=== PATIENT | female | born 1950 | race African-American/Black ===

== ENCOUNTER → 2018-11-10 | Emergency (ER) | payer SELFPAY ==
[~2018-11-10] VITALS: Ht 167.6 cm; Wt 74.8 kg
[~2018-11-10] MED LIST: Isovue-300 100ml vial INJ PRN; NORCO 5-325 TA1 EACH ORAL; OMEPRAZOLE20 M3 ORAL
--- NOTE | 2018-11-10 12:58 | NUR ---
ED Nurse Note: Patient brought in by ambulance from home c/o epigastric abdominal pain 1 hour prior to arrival. patient's last bm was 7am. patient reports she did not take her blood pressure medication this morning. patient is alert awake x4 ambulatory, breathing unlabored and even.
--- NOTE | 2018-11-10 13:13 | Emergency Room Report ---
History of Present Illness General Chief Complaint: Abdominal Pain Source: Patient Present Illness HPI Patient is a 68-year-old female presented after increased abdominal discomfort. Patient reports having increased epigastric pain. She states this had worsened after eating a burrito. Patient had been noted to have increased blood pressure and normally takes amlodipine but did not take her medications today. She also had been drinking alcohol earlier in the day. This seemed to worsen the pain. She denies any fever. She denies any rectal bleeding. She reports having increased epigastric pain was brought in by EMS.Denies any fever. Allergies: Coded Allergies: No Known Allergies (Unverified , 11/10/18) Patient History Past Medical History: see triage record Past Surgical History: none Now: No Reviewed Nursing Documentation: PMH: Agreed; PSxH: Agreed Nursing Documentation-PMH Past Medical History: No History, Except For Hx Hypertension: Yes Review of Systems All Other Systems: negative except mentioned in HPI Physical Exam Vital Signs Date Time Temp Pulse Resp B/P (MAP) Pulse Ox O2 Delivery O2 Flow Rate FiO2 11/10/18 12:53 97.5 98 18 192/112 (138) 94 Room Air Sp02 EP Interpretation: reviewed, normal General Appearance: normal inspection, well appearing, no apparent distress, alert, GCS 15 Head: atraumatic ENT: normal ENT inspection, hearing grossly normal, normal voice Neck: normal inspection, full range of motion, supple, no bony tend Respiratory: normal inspection, lungs clear, normal breath sounds, no respiratory distress, no retraction, no wheezing Cardiovascular #1: regular rate, rhythm, no edema Gastrointestinal: normal inspection, normal bowel sounds, non tender, soft, no guarding, no hernia Genitourinary: no CVA tenderness Musculoskeletal: normal inspection, back normal, normal range of motion Neurologic: normal inspection, alert, oriented x3, responsive, synchronous motor assembler III-XII nml as tested, motor strength/tone normal, speech normal Psychiatric: normal inspection, judgement/insight normal, mood/affect normal Medical Decision Making Diagnostic Impression: Primary Impression: Abdominal pain Additional Impression: Common bile duct dilation ER Course Patient presented for epigastric pain. Differential Diagnosis: A differential diagnosis for the abdominal pain includes , but is not limited to: gastritis, gastroenteritis, enteritis, colitis, irritable bowel disease, inflammatory bowel disease, appendicitis, viral infection, diverticulitis, ileus, bowel obstruction, volvulus, ileus, hernia, intussusception, gas pains, indigestion, gastroesophageal reflux, aortic pathology, urinary tract infection, pyelonephritis. Patient was noted to have some claustrophobia and refused CT imaging despite offer of anxiolytic or sedation. Abdominal us read by radiology showed: Impression: Possible bilateral nonobstructive intrarenal calculi Negative for gallstones. However, there is dilatation of the common bile duct, which measures 9 mm in diameter. Possibly age-related but the possibility of downstream obstruction should be considered. Recommend correlation with liver function tests, consideration for MRCP if clinically indicated Patient was noted to have abnormally dilated CBD on ultrasound. Patient was noted to have some epigastric pain initally and this improved after medications. Patient was advised that this dilated CBD required further imaging. Patient continued to refuse imaging studies. Labs Test 11/10/18 13:15 White Blood Count 8.2 K/UL (4.8-10.8) Red Blood Count 5.05 M/UL (4.20-5.40) Hemoglobin 14.5 G/DL (12.0-16.0) Hematocrit 46.4 % (37.0-47.0) Mean Corpuscular Volume 92 FL (80-99) Mean Corpuscular Hemoglobin 28.7 PG (27.0-31.0) Mean Corpuscular Hemoglobin Concent 31.2 G/DL (32.0-36.0) Red Cell Distribution Width 12.9 % (11.6-14.8) Platelet Count 242 K/UL (150-450) Mean Platelet Volume 9.4 FL (6.5-10.1) Neutrophils (%) (Auto) 58.5 % (45.0-75.0) Lymphocytes (%) (Auto) 28.7 % (20.0-45.0) Monocytes (%) (Auto) 7.4 % (1.0-10.0) Eosinophils (%) (Auto) 3.9 % (0.0-3.0) Basophils (%) (Auto) 1.6 % (0.0-2.0) Urine Color Pale yellow Urine Appearance Clear Urine pH 7 (4.5-8.0) Urine Specific [place] 1.005 (1.005-1.035) Urine Protein 2+ (NEGATIVE) Urine Glucose (UA) Negative (NEGATIVE) Urine Ketones Negative (NEGATIVE) Urine Blood Negative (NEGATIVE) Urine Nitrite Negative (NEGATIVE) Urine Bilirubin Negative (NEGATIVE) Urine Urobilinogen Normal MG/DL (0.0-1.0) Urine Leukocyte Esterase Negative (NEGATIVE) Urine RBC 0 /HPF (0 - 2) Urine WBC 0 /HPF (0 - 2) Urine Squamous Epithelial Cells Occasional /LPF Urine Bacteria Occasional /HPF (NONE) Sodium Level 141 MMOL/L (136-145) Potassium Level 3.5 MMOL/L (3.5-5.1) Chloride Level 104 MMOL/L (98-107) Carbon Dioxide Level 29 MMOL/L (21-32) Anion Gap 8 mmol/L (5-15) Blood Urea Nitrogen 13 mg/dL (7-18) Creatinine 1.0 MG/DL (0.55-1.30) Estimat Glomerular Filtration Rate > 60 mL/min (>60) Glucose Level 94 MG/DL (74-106) Calcium Level 9.2 MG/DL (8.5-10.1) Total Bilirubin 0.7 MG/DL (0.2-1.0) Aspartate Amino Transf (AST/SGOT) 129 U/L (15-37) Alanine Aminotransferase (ALT/SGPT) 50 U/L (12-78) Alkaline Phosphatase 133 U/L (46-116) Total Protein 8.5 G/DL (6.4-8.2) Albumin 4.3 G/DL (3.4-5.0) Globulin 4.2 g/dL Albumin/Globulin Ratio 1.0 (1.0-2.7) Lipase 108 U/L (73-393) EKG Diagnostic Results Rate: normal Rhythm: NSR ST Segments: no acute changes Last Vital Signs Date Time Temp Pulse Resp B/P (MAP) Pulse Ox O2 Delivery O2 Flow Rate FiO2 11/10/18 12:53 97.5 98 18 192/112 (138) 94 Room Air Status: improved Disposition: AGAINST MEDICAL ADVICE Condition: Serious Scripts Hydrocodone Bit/Acetaminophen 5-325* (NORCO 5-325*) 1 Each Tablet 1 TAB ORAL Q4H PRN for For Pain, #12 TAB 0 Refills Prov: Gurpreet Lees MD 11/10/18 Omeprazole (OMEPRAZOLE) 20 Mg Tablet.dr 20 MG ORAL DAILY, #30 TAB Prov: Gurpreet Lees MD 11/10/18 Gurpreet Lees MD Nov 10, 2018 13:13
--- NOTE | 2018-11-10 13:20 | NUR ---
ED Nurse Note: blood/ua sent to lab.
[2018-11-10 13:23] VITALS: BP 157/90
[2018-11-10 13:27] LABS: APPEARANCE,URINE CLEAR; BILIRUBIN, URINE NEGATIVE (NEGATIVE); COLOR,URINE PALE YELLOW; GLUCOSE, URINE (UA) NEGATIVE (NEGATIVE); KETONES,URINE NEGATIVE (NEGATIVE); LEUKOCYTE ESTERASE ,URINE NEGATIVE (NEGATIVE); NITRITE,URINE NEGATIVE (NEGATIVE); PH,URINE 7 (4.5-8.0); PROTEIN,URINE 2+ (NEGATIVE); UROBILINOGEN,URINE NORMAL MG/DL (0.0-1.0)
[2018-11-10 13:28] LABS: BASOPHILS % (AUTO) 1.6 % (0.0-2.0); EOSINOPHILS % (AUTO) 3.9 % (0.0-3.0); HEMATOCRIT 46.4 % (37.0-47.0); HEMOGLOBIN 14.5 G/DL (12.0-16.0); LYMPHOCYTES % (AUTO) 28.7 % (20.0-45.0); MEAN CORPUSCULAR VOLUME 92 FL (80-99); MONOCYTES % (AUTO) 7.4 % (1.0-10.0); NEUTROPHILS % (AUTO) 58.5 % (45.0-75.0); PLATELET COUNT 242 K/UL (150-450); RED BLOOD COUNT 5.05 M/UL (4.20-5.40); RED CELL DISTRIBUTION WIDTH 12.9 % (11.6-14.8); WHITE BLOOD COUNT 8.2 K/UL (4.8-10.8)
[2018-11-10] MEDS: Morphine Sulfate 4mg/ml Inj (IV USE ONLY) IVP ONE ×2 (13:30→14:30)
[2018-11-10 13:38] LABS: ANION GAP 8 mmol/L (5-15); BLOOD UREA NITROGEN 13 mg/dL (7-18); CALCIUM 9.2 MG/DL (8.5-10.1); CARBON DIOXIDE 29 MMOL/L (21-32); CHLORIDE 104 MMOL/L (98-107); POTASSIUM 3.5 MMOL/L (3.5-5.1); SODIUM 141 MMOL/L (136-145)
[2018-11-10 13:42] LABS: ALANINE AMINOTRANSFERASE 50 U/L (12-78); ALBUMIN 4.3 G/DL (3.4-5.0); ALKALINE PHOSPHATASE 133 U/L (46-116); ASPARTATE AMINO TRANSFERASE 129 U/L (15-37); BILIRUBIN,TOTAL 0.7 MG/DL (0.2-1.0)
--- NOTE | 2018-11-10 13:50 | NUR ---
ED Nurse Note: US by the bedside.
--- NOTE | 2018-11-10 14:37 | NUR ---
ED Nurse Note: ERMD by the bedside to explain the need for CT scan, family at bedside.
[2018-11-10 15:42] VITALS: BP 143/77
--- NOTE | 2018-11-10 16:51 | Diagnostic Imaging Report ---
Indication: Abdominal pain Technique: Haywood-scale and duplex images of the upper abdomen were obtained Comparison: none Findings: Gallbladder is unremarkable, without stones, wall thickening, nor pericholecystic fluid. Sonographic Workman's sign is negative. Common bile duct measures 9 mm in diameter. No intrahepatic biliary ductal dilatation. Liver demonstrates normal echogenicity, no focal abnormality. Portal vein and hepatic veins are patent. Pancreas is unremarkable. Spleen is unremarkable. Left kidney measures 9.5 cm in length. Right kidney measures 10.3 cm length. Both kidneys demonstrate normal echogenicity. There is no hydronephrosis. Both kidneys demonstrate echogenic foci with shadowing in the renal sinuses, largest measuring 1.2 cm on the right. Abdominal aorta is partially obscured by bowel gas, visualized portions are non-aneurysmal . Impression: Possible bilateral nonobstructive intrarenal calculi Negative for gallstones. However, there is dilatation of the common bile duct, which measures 9 mm in diameter. Possibly age-related but the possibility of downstream obstruction should be considered. Recommend correlation with liver function tests, consideration for MRCP if clinically indicated Noted inability to visualize portions of the abdominal aorta
== END | disposition left against medical advice (07) ==
LOC: EDUNIT# 12:51 → EDBD 12:53 → EMR 13:15 → CANBEDREQ 17:27
DX: K83.8 Other specified diseases of biliary tract (principal); R10.13 Epigastric pain; I10 Essential (primary) hypertension
CPT/HCPCS: 36415; 76700; 80053; 81003; 83690; 85025; 86850; 86900; 86901; 96374; 96375; 99284; J2270; J2405; S0028